=== PATIENT | male | born 1945 | race Caucasian/White ===

== ENCOUNTER 2018-05-30 22:13 | Inpatient (IN) ==
--- NOTE | 2018-05-30 22:22 | Emergency Department Note ---
Disposition Clinical Impression: Atrial fibrillation with rapid ventricular response Difficulty swallowing Qualifiers: Dysphagia type: unspecified Qualified Code(s): R13.10 - Dysphagia, unspecified UTI (urinary tract infection) Qualifiers: Urinary tract infection type: site unspecified Hematuria presence: with hematuria Qualified Code(s): N39.0 - Urinary tract infection, site not specified; R31.9 - Hematuria, unspecified Pneumonia Qualifiers: Pneumonia type: due to unspecified organism Laterality: right Lung location: lower lobe of lung Qualified Code(s): J18.1 - Lobar pneumonia, unspecified organism Sepsis Qualifiers: Sepsis type: sepsis due to unspecified organism Qualified Code(s): A41.9 - Sepsis, unspecified organism Disposition: Admitted As Inpatient Condition: Fair Referrals: NONE,PCP [Primary Care Provider] - Forms: ED Satisfaction Letter Time of Disposition: 23:15 SOB HPI - General Chief Complaint: ED Shortness of Breath/Dyspnea Stated Complaint: Trouble Swallowing Time Seen by Provider: 05/30/18 22:18 Source: patient, family, EMS Mode of arrival: EMS Limitations: physical limitation Nursing Notes Reviewed: Yes Vital Signs Reviewed: Yes - History of Present Illness Most history obtained from the patient's spouse at bedside. The patient has had difficulty chewing and swallowing. He has a history of multiple CVAs with residual left-sided deficits. Over the past 1-2 weeks the spouse notes the patient puts food in his mouth and it "just sits on his tongue" and "then he just spits it out." The patient also has experienced increasing dyspnea over the past several days. No fevers. No chest pain Pt Subjective Complaint: shortness of breath Onset (ago): day(s) Severity: moderate Consistency/Duration: constant Improves with: bronchodilators Worsens with: nothing Associated symptoms: Reports: denies other symptoms Treatment prior to arrival: oxygen, bronchodilator Cough present: No - Related Data Home oxygen amount: none Allergies Allergy/AdvReac Type Severity Reaction Status Date / Time No Known Allergies Allergy Verified 05/30/18 22:19 All systems ED: reviewed and negative except as stated. Constitutional: Reports: as per HPI Eyes: Reports: as per HPI ENT ED: Reports: as per HPI Cardiovascular: Reports: as per HPI Respiratory: Reports: dyspnea Gastrointestinal: Reports: as per HPI Genitourinary: Reports: as per HPI Musculoskeletal: Reports: as per HPI Integumentary: Reports: as per HPI Neurological: Reports: other (Difficulty swallowing. "Leaning to the left") Psychiatric: Reports: as per HPI Endocrine: Reports: as per HPI Hematological/Lymphatic: Reports: as per HPI Allergic/Immunologic: Reports: as per HPI Past Medical History - Past Medical History Source: old records reviewed, obtained from family Medical history: Reports: CVA - Social History Smoking Status: Current some day smoker Alcohol use: Reports: none Drug use: Reports: none Physical Exam - General Limitations: no limitations General appearance: alert - Head Head exam: atraumatic - Eye Eye exam: Present: normal appearance - ENT ENT exam: normal exam - Neck Neck exam: Present: normal inspection, full ROM - Chest Chest inspection: Present: normal inspection, symmetric chest wall rise - Respiratory Respiratory exam: Present: normal lung sounds bilaterally, other (Tachypnea) - Cardiovascular Cardiovascular exam: Present: tachycardia, normal heart sounds - Abdominal Exam Abdominal exam: Present: soft, Non-Tender - Rectal Exam Rectal exam: Present: deferred - Extremities Exam Extremities exam: Present: normal inspection - Neurological Exam Neurological exam: Present: alert, oriented X3, CN II-XII intact, other (Mild left upper and left lower extremity weakness 4+ / 5) - Psychiatric Psychiatric exam: Present: normal affect, normal mood - Skin Skin exam: Present: warm, dry, intact Course Course Narrative: The patient presents for 2 separate problems. The first is that he has had difficulty swallowing over the past 1-2 weeks. This seems neurologic more than mechanical. This may be secondary to his previous CVAs or new ischemic phenom enon. CT head ordered. The patient also has increasing dyspnea. Cardiopulmonary evaluation to be completed Vital Signs Temperature 97.8 F 05/30/18 22:20 Pulse Rate 189 05/30/18 22:20 Respiratory Rate 23 05/30/18 22:20 Blood Pressure 132/102 05/30/18 22:20 O2 Sat by Pulse Oximetry 98 05/30/18 22:20 Temperature 97.8 F 05/30/18 22:20 Pulse Rate 160 05/30/18 23:26 Respiratory Rate 25 05/30/18 23:26 Blood Pressure 104/83 05/30/18 23:26 O2 Sat by Pulse Oximetry 100 05/30/18 23:26 Oxygen Delivery Oxygen Delivery Room Air Shortness of Breath/Dyspnea - MDM Narrative Medical decision making narrative: ECG shows a narrow complex tachycardia most consistent with atrial fibrillation with RVR. Rate control agents initiated - Medical Records Medical records reviewed: Yes I reviewed the patient's medical records. - Lab Data Lab results reviewed: Yes I reviewed the patient's lab results. Result diagrams: 05/30/18 22:50 05/30/18 22:50 Lab Results 05/30/18 05/30/18 05/30/18 Range/Units 22:43 22:50 22:50 WBC 16.1 H (4.3-11.1) K/mcL RBC 4.86 (4.19-5.50) M/mcL Hgb 13.9 (12.9-16.9) g/dL Hct 43.0 (37.5-50.1) % MCV 88.5 (83.0-100.0) fL MCH 28.6 (28.0-33.3) pg MCHC 32.3 (31.6-35.5) g/dL RDW 14.5 (11.5-14.5) % Plt Count 366 (140-400) K/mcL MPV 11.3 (9.4-12.4) fL Immature Gran % 0.7 (0-4) % Seg Neutrophils % 85.0 % Lymphocytes % 6.2 % Monocytes % 7.7 % Eosinophils % 0.2 % Basophils % 0.2 % Neutrophils # 13.7 H (1.6-8.9) K/mcL Lymphocytes # 1.0 (0.6-4.6) K/mcL Monocytes # 1.2 (0.0-1.3) K/mcL Eosinophils # 0.0 (0.0-0.6) K/mcL Basophils # 0.0 (0.0-0.2) K/mcL PT 14.2 H (9.4-12.1) Seconds INR 1.3 APTT (26.0-36.0) Seconds Sodium (136-145) mEq/L Potassium (3.5-5.1) mEq/L Chloride (98-107) mEq/L Carbon Dioxide (23-29) mEq/L BUN (8-23) mg/dL Creatinine (0.70-1.30) mg/dL Est GFR ( Amer) (> 60) Est GFR (Non-Af Amer) (> 60) BUN/Creatinine Ratio (6-26) Glucose (70-105) mg/dL Calculated Osmolality (280-300) Lactic Acid (0.5-2.2) mmol/L Calcium (8.6-10.3) mg/dL Magnesium (1.6-2.6) mg/dL Total Bilirubin (0.3-1.0) mg/dL AST (13-39) Units/L ALT (7-52) Units/L Alkaline Phosphatase (34-104) Units/L Troponin I (< 0.04) ng/mL B-Natriuretic Peptide (Less than 100) pg/mL Serum Total Protein (6.4-8.9) g/dL Albumin (3.5-5.7) g/dL Globulin (2.4-3.5) g/dL Albumin/Globulin Ratio (1.1-2.2) TSH (0.340-5.600) mcIU/mL Urine Color Dark Yellow (Yellow) Urine Clarity Cloudy A (Clear) Urine pH 6.0 (5.0-8.0) pH Units Ur Specific [place] 1.022 (1.010-1.025) Urine Protein 30 H (Neg-Trace) mg/dL Urine Glucose (UA) Normal (Normal) mg/dL Urine Ketones Negative (Negative) mg/dL Urine Blood Small H (Negative) Urine Nitrite Positive A (Negative) Urine Bilirubin Small H (Negative) Urine Urobilinogen >=8.0 H (Normal) mg/dL Ur Leukocyte Esterase Large H (Negative) Urine Microscopic RBC 0-3 (0-3) per hpf Urine Microscopic WBC TNTC H (0-3) per hpf Ur Squamous Epith Cells Few (None-Few) per lpf Urine Bacteria Many H (None-Few) per hpf 05/30/18 05/30/18 05/30/18 Range/Units 22:50 22:50 22:50 WBC (4.3-11.1) K/mcL RBC (4.19-5.50) M/mcL Hgb (12.9-16.9) g/dL Hct (37.5-50.1) % MCV (83.0-100.0) fL MCH (28.0-33.3) pg MCHC (31.6-35.5) g/dL RDW (11.5-14.5) % Plt Count (140-400) K/mcL MPV (9.4-12.4) fL Immature Gran % (0-4) % Seg Neutrophils % % Lymphocytes % % Monocytes % % Eosinophils % % Basophils % % Neutrophils # (1.6-8.9) K/mcL Lymphocytes # (0.6-4.6) K/mcL Monocytes # (0.0-1.3) K/mcL Eosinophils # (0.0-0.6) K/mcL Basophils # (0.0-0.2) K/mcL PT (9.4-12.1) Seconds INR APTT 30.4 (26.0-36.0) Seconds Sodium 138 (136-145) mEq/L Potassium 3.0 L (3.5-5.1) mEq/L Chloride 104 (98-107) mEq/L Carbon Dioxide 24 (23-29) mEq/L BUN 44 H (8-23) mg/dL Creatinine 1.22 (0.70-1.30) mg/dL Est GFR ( Amer) > 60 (> 60) Est GFR (Non-Af Amer) 58 L (> 60) BUN/Creatinine Ratio 36 H (6-26) Glucose 139 H (70-105) mg/dL Calculated Osmolality 299 (280-300) Lactic Acid (0.5-2.2) mmol/L Calcium 9.6 (8.6-10.3) mg/dL Magnesium 2.1 (1.6-2.6) mg/dL Total Bilirubin 0.8 (0.3-1.0) mg/dL AST 36 (13-39) Units/L ALT 24 (7-52) Units/L Alkaline Phosphatase 97 (34-104) Units/L Troponin I 0.05 H* (< 0.04) ng/mL B-Natriuretic Peptide 299 H (Less than 100) pg/mL Serum Total Protein 7.3 (6.4-8.9) g/dL Albumin 3.2 L (3.5-5.7) g/dL Globulin 4.1 H (2.4-3.5) g/dL Albumin/Globulin Ratio 0.8 L (1.1-2.2) TSH (0.340-5.600) mcIU/mL Urine Color (Yellow) Urine Clarity (Clear) Urine pH (5.0-8.0) pH Units Ur Specific [place] (1.010-1.025) Urine Protein (Neg-Trace) mg/dL Urine Glucose (UA) (Normal) mg/dL Urine Ketones (Negative) mg/dL Urine Blood (Negative) Urine Nitrite (Negative) Urine Bilirubin (Negative) Urine Urobilinogen (Normal) mg/dL Ur Leukocyte Esterase (Negative) Urine Microscopic RBC (0-3) per hpf Urine Microscopic WBC (0-3) per hpf Ur Squamous Epith Cells (None-Few) per lpf Urine Bacteria (None-Few) per hpf 05/30/18 05/30/18 Range/Units 22:50 22:50 WBC (4.3-11.1) K/mcL RBC (4.19-5.50) M/mcL Hgb (12.9-16.9) g/dL Hct (37.5-50.1) % MCV (83.0-100.0) fL MCH (28.0-33.3) pg MCHC (31.6-35.5) g/dL RDW (11.5-14.5) % Plt Count (140-400) K/mcL MPV (9.4-12.4) fL Immature Gran % (0-4) % Seg Neutrophils % % Lymphocytes % % Monocytes % % Eosinophils % % Basophils % % Neutrophils # (1.6-8.9) K/mcL Lymphocytes # (0.6-4.6) K/mcL Monocytes # (0.0-1.3) K/mcL Eosinophils # (0.0-0.6) K/mcL Basophils # (0.0-0.2) K/mcL PT (9.4-12.1) Seconds INR APTT (26.0-36.0) Seconds Sodium (136-145) mEq/L Potassium (3.5-5.1) mEq/L Chloride (98-107) mEq/L Carbon Dioxide (23-29) mEq/L BUN (8-23) mg/dL Creatinine (0.70-1.30) mg/dL Est GFR ( Amer) (> 60) Est GFR (Non-Af Amer) (> 60) BUN/Creatinine Ratio (6-26) Glucose (70-105) mg/dL Calculated Osmolality (280-300) Lactic Acid 2.3 H (0.5-2.2) mmol/L Calcium (8.6-10.3) mg/dL Magnesium (1.6-2.6) mg/dL Total Bilirubin (0.3-1.0) mg/dL AST (13-39) Units/L ALT (7-52) Units/L Alkaline Phosphatase (34-104) Units/L Troponin I (< 0.04) ng/mL B-Natriuretic Peptide (Less than 100) pg/mL Serum Total Protein (6.4-8.9) g/dL Albumin (3.5-5.7) g/dL Globulin (2.4-3.5) g/dL Albumin/Globulin Ratio (1.1-2.2) TSH 3.301 (0.340-5.600) mcIU/mL Urine Color (Yellow) Urine Clarity (Clear) Urine pH (5.0-8.0) pH Units Ur Specific [place] (1.010-1.025) Urine Protein (Neg-Trace) mg/dL Urine Glucose (UA) (Normal) mg/dL Urine Ketones (Negative) mg/dL Urine Blood (Negative) Urine Nitrite (Negative) Urine Bilirubin (Negative) Urine Urobilinogen (Normal) mg/dL Ur Leukocyte Esterase (Negative) Urine Microscopic RBC (0-3) per hpf Urine Microscopic WBC (0-3) per hpf Ur Squamous Epith Cells (None-Few) per lpf Urine Bacteria (None-Few) per hpf - Radiology Data Radiology results reviewed: Yes I reviewed the patient's radiology results. - EKG Data EKG attestation: Yes I reviewed and interpreted this EKG. EKG results narrative: Neuro complex tachycardia rate 189 QRS 104 QT/QTC 253/449. Study compared to previous dated 01/30/14 Critical Care Time Critical Care Time: Yes Total Critical Care Time: 45 Attestation: The high probability of a clinically significant, sudden or life threatening deterioration of the [] system(s) required my full and direct attention, intervention and personal management. The aggregate critical care time was [] minutes. This time is in addition to time spent performing reported procedures but includes the following: [] Data Review and interpretation [] Patient assessment and monitoring of vital signs [] Documentation [] Medication orders and management
[2018-05-30 22:58] LABS: Bilirubin,Urine Small (Negative); Blood,Urine Small (Negative); Clarity,Urine Cloudy (Clear); Color,Urine Dark Yellow (Yellow); Glucose,Urine (UA) Normal (Normal); Ketones,Urine Negative (Negative); Leukocyte Esterase,Urine Large (Negative); Nitrite,Urine Positive (Negative); Protein,Urine 30 mg/dL (Neg-Trace); Specific Gravity,Urine 1.022 (1.010-1.025); Urobilinogen,Urine >=8.0 mg/dL (Normal)
[2018-05-30 23:00] LABS: Bacteria,Urine Many per hpf (None-Few); RBC,Urine 0-3 per hpf (0-3); Squamous Epithelial Cell,Urine Few per lpf (None-Few); WBC,Urine TNTC per hpf (0-3)
[2018-05-30 23:08] LABS: Basophils % 0.2 %; Eosinophils % 0.2 %; Hemoglobin 13.9 g/dL (12.9-16.9); Immature Granulocytes % 0.7 % (0-4); Lymphocytes % 6.2 %; Mean Corpuscular HGB Conc 32.3 g/dL (31.6-35.5); Mean Corpuscular Hemoglobin 28.6 pg (28.0-33.3); Mean Corpuscular Volume 88.5 fL (83.0-100.0); Mean Platelet Volume 11.3 fL (9.4-12.4); Monocytes # 1.2 K/mcL (0.0-1.3); Monocytes % 7.7 %; Neutrophils # 13.7 K/mcL (1.6-8.9); Platelet Count 366 K/mcL (140-400); Red Blood Count 4.86 M/mcL (4.19-5.50); Red Cell Distribution Width 14.5 % (11.5-14.5)
[2018-05-30 23:13] LABS: INR 1.3; Prothrombin Time 14.2 Seconds (9.4-12.1)
[2018-05-30] MEDS ORDERED: cefTRIAXone 1,000 MG in Water for inj. (sterile) 20 ML 10 ML IVPB ONE (23:14)
[2018-05-30 23:26] LABS: Alanine Aminotransferase 24 Units/L (7-52); Albumin 3.2 g/dL (3.5-5.7); Albumin/Globulin Ratio 0.8 (1.1-2.2); Alkaline Phosphatase 97 Units/L (34-104); Aspartate Amino Transferase 36 Units/L (13-39); BUN/Creatinine Ratio 36 (6-26); Bilirubin,Total 0.8 mg/dL (0.3-1.0); Blood Urea Nitrogen 44 mg/dL (8-23); Calcium 9.6 mg/dL (8.6-10.3); Carbon Dioxide 24 mEq/L (23-29); Chloride 104 mEq/L (98-107); Globulin 4.1 g/dL (2.4-3.5); Glucose 139 mg/dL (70-105); Magnesium 2.1 mg/dL (1.6-2.6); Osmolality,Calculated 299 (280-300); Sodium 138 mEq/L (136-145); Total Protein 7.3 g/dL (6.4-8.9); eGFR For Non-African Americans 58 (> 60)
[2018-05-30 23:29] LABS: Troponin I 0.05 ng/mL (< 0.04)
[2018-05-30] MEDS ORDERED: Aspirin 325 MG TABLET PO ONE (23:30)
[2018-05-30] MEDS ORDERED: Azithromycin 500 MG in D5% in Water 250 ML IVPB ONE (23:55)
[2018-05-30] MEDS ORDERED: 0.9 % Sodium Chloride 1,000 ML IVC ONE (23:58)
[2018-05-31] MEDS ORDERED: Piperacillin/Tazobactam 3.375 GM in 0.9 % Sodium Chloride Mini Bag 100 ML IVPB ONE (00:07)
[2018-05-31] MEDS ORDERED: Ondansetron 4 MG/2 ML VIAL IVP PRN (01:53)
[2018-05-31] MEDS ORDERED: Naloxone 0.4 MG/ML INJ IVP PRN (01:53)
[2018-05-31] MEDS ORDERED: OXYCODONE Oral CONC 10 MG/0.5 ML ORAL.SYG SL PRN (01:53)
[2018-05-31] MEDS ORDERED: 0.9 % Sodium Chloride 1,000 ML IVC ONE (01:54)
[2018-05-31] MEDS ORDERED: Ipratropium/Albuterol Neb 3 ML IH PRN (01:55)
[2018-05-31] MEDS ORDERED: Potassium Chloride 40 MEQ, Lidocaine 1% 2 ML in D5% in Water 500 ML IVPB ONE (01:58)
--- NOTE | 2018-05-31 01:58 | Internal Med History&Physical ---
<Martin Lopez - Last Filed: 05/31/18 03:20> Date of Encounter: 05/31/18 Time of Encounter: 01:57 Internal Medicine - H&P: HPI Chief complaint: Difficulty swallowing Admitted From: Emergency Dept Plans for Post Hospital Care: Home History of present illness: Mr. Gilliland is a 73 year old male with past medical history of CVA 9, atrial fibrillation, COPD, CAD with [place], hypertension, borderline diabetes, dementia who presented to the emergency department with his with complaint of difficulty swallowing. Patient is notably not a good historian and most of history is obtained from his and chart review. states that she has noticed him being unable to swallow for the past 3 days. He does have residual deficits from his strokes including extremity weakness however she states that normally he has no issues eating or drinking. She has not noticed any coughing or gagging while eating. She states that when he puts food in his mouth, he will chew but is unable to initiate a swallow mechanism. She states that previously he has been able to eat and drink very well and usually has a very good appetite. He has not been complaining of other symptoms including fevers, chills, chest pains, difficulty breathing, nausea, vomiting, urinary symptoms. He is incontinent at baseline. He also has had some more loose stools recently. He does state he has a cough but is unable to describe his sputum. He does relate to me that he is not currently any pain. In the emergency room, vital signs were significant for heart rate of 189, respiratory rate 23, he is saturating 98% oxygen on room air. Leukocytosis was noted at 16.1, potassium low at 3.0 and sodium borderline low at 130. BUNs/creatinine of 44/1.22 and lactic acid 2.3. Troponin was also elevated at 0.05 and BNP was 299. Urinalysis was also obtained which shows large leukocyte esterase, too numerous to count white blood cells and few epithelial cells. EKG was obtained and showed atrial fibrillation with rapid ventricular response with a rate in the 180s. Also noted was some ST depressions in lead II. Chest x-ray was obtained and showed right lower lobe consolidation and CT of the head showed extensive chronic changes encephalomalacia. Past medical history as above. states that he is not on anticoagulation for atrial fibrillation. Past surgical history: Cholecystectomy Social history: Current smoker, very rare alcohol use. Denies drug use Past Med Surg Social Fam HX - Past Medical History Medical history: CVA Psychiatric history: no psych history - Social History Smoking Status: Current some day smoker Smokeless Tobacco Status: No Alcohol use: none Drug use: none Internal Medicine - H&P: Meds Allergy/AdvReac Type Severity Reaction Status Date / Time No Known Allergies Allergy Verified 05/30/18 22:19 ROS unobtainable: due to mental status All Systems PM: A 10-system review of systems was performed and is negative for pertinent findings except as documented above in the HPI. - Constitutional Vitals: Temp Pulse Resp BP Pulse Ox 97.8 F 117 22 104/86 100 05/30/18 22:20 05/31/18 01:34 05/31/18 01:34 05/31/18 01:34 05/31/18 01:34 Exam: Gen.: Vitals noted. No acute distress. AAOx1, resting comfortably in bed. HEENT: PERRL/EOMI, oropharynx clear, Normocephalic, atraumatic, dry mucous membranes, tongue is orange in color Cardiac: Irregularly irregular, tachycardic, no murmur, +S1/S2, No BLE edema Pulmonary: Diffuse expiratory wheezes, crackles on right base. equal chest expansion, unlabored breathing Abdomen: soft, nontender, BS noted, no guarding, no palpable HSM Skin: warm and dry, no visible lesions. MSK: ROM unable to assess secondary to mental status. Patient unable to compreh end instructions., no joint swelling noted, gait no assessed while in bed. Non tender calf or clubbing Neuro: A&Ox1, unable to fully assess neurological exam is patient is unable to follow commands. He does try to stick out his tongue however tip of tongue does not protrude past mouth opening. Pupils equal and reactive to light. Psych: Appropriate mood and behavior, AOx1 Internal Med - H&P Results - Labs CBC & Chem 7: 05/30/18 22:50 05/30/18 22:50 Labs: Short CBC 05/30/18 Range/Units 22:50 WBC 16.1 H (4.3-11.1) K/mcL Hgb 13.9 (12.9-16.9) g/dL Hct 43.0 (37.5-50.1) % Plt Count 366 (140-400) K/mcL Neutrophils # 13.7 H (1.6-8.9) K/mcL BMP 05/30/18 22:50 Sodium 138 Potassium 3.0 L Chloride 104 Carbon Dioxide 24 BUN 44 H Creatinine 1.22 Glucose 139 H Calcium 9.6 Cardiac Enzymes 05/30/18 Range/Units 22:50 Troponin I 0.05 H* (< 0.04) ng/mL Liver Function 05/30/18 Range/Units 22:50 Total Bilirubin 0.8 (0.3-1.0) mg/dL AST 36 (13-39) Units/L ALT 24 (7-52) Units/L Alkaline Phosphatase 97 (34-104) Units/L Albumin 3.2 L (3.5-5.7) g/dL Urine 05/30/18 Range/Units 22:43 Urine Color Dark Yellow (Yellow) Urine Clarity Cloudy A (Clear) Urine pH 6.0 (5.0-8.0) pH Units Ur Specific [place] 1.022 (1.010-1.025) Urine Protein 30 H (Neg-Trace) mg/dL Urine Glucose (UA) Normal (Normal) mg/dL - Impressions ITS Impressions Chest X-Ray 05/30/18 22:19 IMPRESSION: Right lower lobe airspace consolidation suggesting pneumonia. Recommend clinical correlation and follow-up to resolution. D/ / Gary Burleson MD / Gary Burleson MD Interpreting Provider: Gary Burleson MD Head CT 05/30/18 22:19 IMPRESSION: Extensive chronic white matter microangiopathic ischemic changes and age-related cerebral atrophy. Evidence of encephalomalacia from remote infarcts in bilateral occipital lobes and left frontal lobe. No evidence of acute intracranial hemorrhage. Right maxillary sinusitis. D/ / Gary Burleson MD / Gary Burleson MD Interpreting Provider: Gary Burleson MD - Assessment and plan (1) Severe sepsis Current Visit: Yes Status: Acute Assessment and plan: - Meets 3/4 sirs criteria with tachycardia, tachypnea, leukocytosis - Lactic Acidosis 2.3, repeat pending - Likely source at this time is aspiration pneumonia with possible simultaneous UTI - Causative organism, unclear - Patient's states that he has been difficulty initiating swallow reflex. History of multiple CVA - No previous cultures at this facility - Blood cultures obtained emergency department - Urinalysis shows large leukocyte esterase, too numerous to count white blood cells, few epithelial cells. Culture sent - Chest x-ray in the emergency department shows right lower lobe consolidation suggestive for possible pneumonia. Consistent with aspiration Plan - We will continue Zosyn to cover both UTI and aspiration - Speech therapy has been consulted - Follow up blood cultures, urine cultures - Trend lactic acid - Received 1 L bolus emergency room, will order additional 1 L for 30 mL/kg bolus, and then maintenance after that (2) Atrial fibrillation with rapid ventricular response Current Visit: Yes Status: Acute Assessment and plan: - Known history of AFib - Not on home AC per , suspect frequent falls - Rate uncontrolled on presentation in 180s, likely secondary to infection, dehydration - No home meds in system yet - Started on cardizem gtt in ED - [id number]= 5 (age, HTN, stroke, PAD) - HASBLED= 3 (stroke, age, falls)- unclear home meds Plan - Continue cardizem gtt - Will not start AC as patient will likely be a poor candidate as outpatient - Subcutaneous heparin (3) History of stroke Current Visit: Yes Status: Chronic (4) COPD (chronic obstructive pulmonary disease) Current Visit: Yes Status: Chronic Assessment and plan: Does not appear to be in acute exacerbation - Some wheezing on auscultation - Will schedule duonebs Qualifiers: COPD type: unspecified COPD Qualified Code(s): J44.9 - Chronic obstructive pulmonary disease, unspecified (5) CAD (coronary artery disease) Current Visit: Yes Status: Chronic Assessment and plan: - No complaints of chest pain - EKG shows AFib RVR. Non specific lead II changes. Will repeat EKG but suspect due to demand - Will continue home meds once reconciled and passes swallow eval - trend troponin Qualifiers: Coronary Disease-Associated Artery/Lesion type: [place] artery [place] vs. transplanted heart: [place] heart Associated angina: without angina Qualified Code(s): I25.10 - Atherosclerotic heart disease of [place] coronary artery without angina pectoris (6) Difficulty swallowing Current Visit: Yes Status: Acute Assessment and plan: - Chief complaint of dysphagia and initiating swallow reflex per - patient has been previously eating and drinking without difficulty. - Very significant history of strokes - Speech therapy has been consulted - Consider formal swallow study - NPO - CT head negative in ED for acute event. - MRI ordered for AM to rule out further ischemic event Qualifiers: Dysphagia type: unspecified Qualified Code(s): R13.10 - Dysphagia, unspecified (7) Pneumonia Current Visit: Yes Status: Suspected Assessment and plan: - as above - Suspect aspiration event given hx of stroke and dysphagia Qualifiers: Pneumonia type: aspiration pneumonia Aspiration pneumonia type: unspecified Laterality: right Lung location: lower lobe of lung Qualified Code(s): J69.0 - Pneumonitis due to inhalation of food and vomit (8) UTI (urinary tract infection) Current Visit: Yes Status: Acute Assessment and plan: as above for sepsis Qualifiers: Urinary tract infection type: acute cystitis Hematuria presence: with hematuria Qualified Code(s): N30.01 - Acute cystitis with hematuria (9) Elevated serum creatinine Current Visit: Yes Status: Acute Assessment and plan: - Cr on Admission of 1.22, calculated GFR of 58 - Unclear baseline - Suspect this may be mildly elevated from baseline due to sepsis, pre-renal causes - Will give fluids as above - Continue to trend - Avoid nephrotoxins, renally dose (10) Elevated troponin Current Visit: Yes Status: Acute Assessment and plan: Troponin of 0.05 Likely elevated due to demand ischemia in the setting of AFib RVR, sepsis Will trend, expect a mild rise (11) Hypokalemia Current Visit: Yes Status: Acute Assessment and plan: K of 3.0 Will replenish Check Magnesium Repeat labs (12) Tobacco abuse Current Visit: Yes Status: Acute Assessment and plan: current partial PPD smoker encouraged cessation (13) DVT prophylaxis Current Visit: Yes Status: Acute Assessment and plan: - Subcutaneous heparin. Not on home AC per . - Time Spent With Patient Total time spent is greater than 50% in coordination of care (as documented) at patient's floor/unit and/or counseling patient: <CelsavadimWilfrido Vega - Last Filed: 05/31/18 08:02> Date of Encounter: 05/31/18 Internal Medicine - H&P: HPI History of present illness: Mr. Gilliland is a 73 year old male All Systems PM: A 10-system review of systems was performed and is negative for pertinent findings except as documented above in the HPI. - Constitutional Vitals: Temp Pulse Resp BP Pulse Ox 98.4 F 111 17 103/85 96 05/31/18 07:29 05/31/18 07:29 05/31/18 07:29 05/31/18 07:29 05/31/18 07:29 Internal Med - H&P Results - Labs CBC & Chem 7: 05/31/18 05:23 05/31/18 05:23 Labs: Short CBC 05/30/18 05/31/18 Range/Units 22:50 05:23 WBC 16.1 H 12.0 H (4.3-11.1) K/mcL Hgb 13.9 11.4 L D (12.9-16.9) g/dL Hct 43.0 34.5 L (37.5-50.1) % Plt Count 366 309 (140-400) K/mcL Neutrophils # 13.7 H 9.2 H (1.6-8.9) K/mcL BMP 05/30/18 05/31/18 22:50 05:23 Sodium 138 138 Potassium 3.0 L 3.1 L Chloride 104 107 Carbon Dioxide 24 23 BUN 44 H 40 H Creatinine 1.22 1.08 Glucose 139 H 127 H Calcium 9.6 8.8 Cardiac Enzymes 05/30/18 05/31/18 Range/Units 22:50 05:23 Troponin I 0.05 H* 0.06 H* (< 0.04) ng/mL Liver Function 05/30/18 Range/Units 22:50 Total Bilirubin 0.8 (0.3-1.0) mg/dL AST 36 (13-39) Units/L ALT 24 (7-52) Units/L Alkaline Phosphatase 97 (34-104) Units/L Albumin 3.2 L (3.5-5.7) g/dL Urine 05/30/18 Range/Units 22:43 Urine Color Dark Yellow (Yellow) Urine Clarity Cloudy A (Clear) Urine pH 6.0 (5.0-8.0) pH Units Ur Specific [place] 1.022 (1.010-1.025) Urine Protein 30 H (Neg-Trace) mg/dL Urine Glucose (UA) Normal (Normal) mg/dL - Impressions ITS Impressions Chest X-Ray 05/30/18 22:19 IMPRESSION: Right lower lobe airspace consolidation suggesting pneumonia. Recommend clinical correlation and follow-up to resolution. D/ / Gary Burleson MD / Gary Burleson MD Interpreting Provider: Gary Burleson MD Head CT 05/30/18 22:19 IMPRESSION: Extensive chronic white matter microangiopathic ischemic changes and age-related cerebral atrophy. Evidence of encephalomalacia from remote infarcts in the bilateral occipital lobes and left frontal lobe. No evidence of acute intracranial hemorrhage. Right maxillary sinusitis. D/ / 05/31/2018 07:10:16 Gary Burleson MD / dante Interpreting Provider: Gary Burleson MD - Time Spent With Patient Total time spent is greater than 50% in coordination of care (as documented) at patient's floor/unit and/or counseling patient: - Attending Attestation I performed a history and physical examination of the patient and discussed his management with the resident. I reviewed the resident's note and agree with the documented findings and plan of care.
[2018-05-31] MEDS: 0.9 % Sodium Chloride 1,000 ML IVC SCH ×2 (04:05→12:12)
[2018-05-31 05:35] LABS: Basophils % 0.2 %; Eosinophils # 0.1 K/mcL (0.0-0.6); Eosinophils % 0.7 %; Hematocrit 34.5 % (37.5-50.1); Hemoglobin 11.4 g/dL (12.9-16.9); Immature Granulocytes % 0.9 % (0-4); Lymphocytes # 1.6 K/mcL (0.6-4.6); Lymphocytes % 13.1 %; Mean Corpuscular Hemoglobin 29.2 pg (28.0-33.3); Mean Corpuscular Volume 88.2 fL (83.0-100.0); Mean Platelet Volume 11.1 fL (9.4-12.4); Monocytes % 8.7 %; Neutrophils # 9.2 K/mcL (1.6-8.9); Platelet Count 309 K/mcL (140-400); Red Blood Count 3.91 M/mcL (4.19-5.50); Red Cell Distribution Width 14.5 % (11.5-14.5); Segmented Neutrophils % 76.4 %
[2018-05-31 05:55] LABS: BUN/Creatinine Ratio 37 (6-26); Blood Urea Nitrogen 40 mg/dL (8-23); Calcium 8.8 mg/dL (8.6-10.3); Carbon Dioxide 23 mEq/L (23-29); Chloride 107 mEq/L (98-107); Chol/HDL Ratio 6.7 (0-4.9); Cholesterol 87 mg/dL (< 200); Glucose 127 mg/dL (70-105); HDL Cholesterol 13 mg/dL (40-59); LDL Cholesterol,Calculated 50 mg/dL (0-99); Magnesium 2.1 mg/dL (1.6-2.6); Osmolality,Calculated 297 (280-300); Potassium 3.1 mEq/L (3.5-5.1); Sodium 138 mEq/L (136-145); Triglycerides 118 mg/dL (< 150); eGFR For Non-African Americans > 60 (> 60)
--- NOTE | 2018-05-31 06:39 | Sepsis Event Note ---
Sepsis Reassessment Note - Evaluation Sepsis Screen: Sepsis Risk Current Stage of Sepsis: sepsis Possible Source of Sepsis: pulmonary - Focused Exam Date of Encounter: 05/31/18 Time of Encounter: 06:37 Vital Signs: Vital Signs Temp Pulse Resp BP Pulse Ox 05/31/18 03:50 19 103/60 05/31/18 03:45 99 05/31/18 03:24 97.8 F 93 18 122/87 98 05/31/18 01:34 117 22 104/86 100 05/31/18 00:31 154 21 107/73 100 05/31/18 00:04 175 24 115/87 95 05/30/18 23:26 160 25 104/83 100 05/30/18 22:44 132 24 106/72 95 05/30/18 22:20 97.8 F 189 23 132/102 98 Respiratory Exam: Present: wheezes Cardiovascular Exam: Present: irregulary irregular, S1, S2 Capillary Refill: < 2 seconds Peripheral Pulse Strength: 2+ slightly diminished Peripheral Pulse Location: Radial Skin Exam: normal turgor
[2018-05-31] MEDS: *HR* Heparin 5,000 UNIT/ML VIAL SQ SCH ×2 (06:43→19:02)
[2018-05-31] MEDS: Piperacillin/Tazobactam 3.375 GM in 0.9 % Sodium Chloride Mini Bag 100 ML IVPB SCH ×2 (08:39→17:31)
[2018-05-31] MEDS ORDERED: *HR* LORazepam 2 MG/ML VIAL IVP PRN (09:27)
[2018-05-31] MEDS: Diltiazem CD (24hr) 120 MG CAPSULE PO SCH (09:43)
--- NOTE | 2018-05-31 09:48 | Event Note ---
Date of Encounter: 05/31/18 Time of Encounter: 09:45 73 year old male with past medical history of CVA 9, atrial fibrillation, COPD, CAD with [place], hypertension, borderline diabetes, dementia who presented to the emergency department with his with complaint of difficulty swallowing. Patient is notably not a good historian and most of history is obtained from his and chart review. states that she has noticed him being unable to swallow for the past 3 days. Plan Sepsis likely 2/2 to UTI and aspiration pneumonia. Continue zosyn. Follow blood and urine cultures Dysphagia r/o stroke. Obtain MRI. Speech swalow eval. Barium esophagram if necessary Afib with RVR. Wean off cardizem drip and transition to po cardizem
[2018-05-31] MEDS: Potassium Chloride Elixir 20 MEQ/15 ML UDC PO SCH ×3 (12:39→14:36)
[2018-05-31] MEDS ORDERED: Haloperidol Lactate 5 MG/ML VIAL IM PRN (12:55)
[2018-05-31] MEDS ORDERED: Potassium Phosphate 44 MEQ in 0.9 % Sodium Chloride 250 ML IVPB ONE (15:18)
[2018-05-31] MEDS ORDERED: D5% in Water 500 ML IVC SCH ×2 (17:30→18:45)
[2018-05-31] MEDS ORDERED: *HR* Dextrose 50 % in Water (Syg) 50 ML SYRINGE IVP PRN (20:29)
[2018-05-31] MEDS ORDERED: Dextrose Gel 15 GM/37.5 ML TUBE PO PRN ×2 (20:29)
[2018-05-31] MEDS ORDERED: D5% in Water 1,000 ML IVC PRN (20:29)
[2018-06-01] MEDS: D5% in Water 1,000 ML IVC SCH ×2 (00:22→11:28)
[2018-06-01] MEDS: Piperacillin/Tazobactam 3.375 GM in 0.9 % Sodium Chloride Mini Bag 100 ML IVPB SCH ×3 (00:51→18:13)
[2018-06-01] MEDS: Levalbuterol Neb 1.25 MG/3 ML IH SCH ×5 (03:00→21:50)
[2018-06-01] MEDS: *HR* Heparin 5,000 UNIT/ML VIAL SQ SCH ×2 (05:20→18:14)
[2018-06-01] MEDS: Diltiazem CD (24hr) 120 MG CAPSULE PO SCH (08:23)
--- NOTE | 2018-06-01 09:49 | Internal Med Progress Note ---
Hospitalist Progress Note - Encounter Date of Encounter: 06/01/18 Time of Encounter: 09:45 - Subjective Interval History: 73 year old male with past medical history of CVA 9, atrial fibrillation, COPD, CAD with [place], hypertension, borderline diabetes, dementia who presented to the emergency department with his with complaint of difficulty swallowing. Patient is notably not a good historian and most of history is obtained from his and chart review. states that she has noticed him being unable to swallow for the past 3 days. - Exam Vitals: Temp Pulse Resp BP Pulse Ox 98.8 F 96 18 153/87 91 06/01/18 08:25 06/01/18 08:25 06/01/18 08:25 06/01/18 08:25 06/01/18 08:54 Exam: Gen.: Vitals noted. No acute distress. AAOx1, resting comfortably in bed. HEENT: PERRL/EOMI, oropharynx clear, Normocephalic, atraumatic, dry mucous membranes, tongue is orange in color Cardiac: Irregularly irregular, tachycardic, no murmur, +S1/S2, No BLE edema Pulmonary: Diffuse expiratory wheezes, crackles on right base. equal chest expansion, unlabored breathing Abdomen: soft, nontender, BS noted, no guarding, no palpable HSM Skin: warm and dry, no visible lesions. MSK: ROM unable to assess secondary to mental status. Patient unable to comprehend instructions., no joint swelling noted, gait no assessed while in bed. Non tender calf or clubbing Neuro: A&Ox1, unable to fully assess neurological exam is patient is unable to follow commands. He does try to stick out his tongue however tip of tongue does not protrude past mouth opening. Pupils equal and reactive to light. Psych: Appropriate mood and behavior, AOx1 - Assessment and Plan (1) Sepsis Current Visit: Yes Status: Acute Assessment and Plan: Sepsis likely 2/2 to UTI and aspiration pneumonia/ bacterial pneumonia. Continue zosyn. Follow blood and urine cultures WBC trending down (2) Pneumonia Current Visit: Yes Status: Acute Assessment and Plan: Continue zosyn. Follow blood and urine cultures (3) Atrial fibrillation with rapid ventricular response Current Visit: Yes Status: Acute Assessment and Plan: Weaned off cardizem drip and transitioned to po cardizem. Not a candidate for anticoagulation due to recurrent falls (4) Dysphagia Current Visit: Yes Status: Acute Assessment and Plan: MRI negative for speech. Will obtain speech swallow evaluation with modified barium swallow. Continue D5 for nutrition (5) Hypokalemia Current Visit: Yes Status: Acute Assessment and Plan: Replaced (6) DVT prophylaxis Current Visit: Yes Status: Acute Assessment and Plan: Heparin sc - Time Spent with Patient Total time spent is greater than 50% in coordination of care (as documented) at patient's floor/unit and/or counseling patient: Internal Medicine: Result - Labs CBC & Chem 7: 06/01/18 10:52 06/01/18 10:52 Labs: Cardiac Enzymes 05/31/18 Range/Units 10:51 Troponin I 0.07 H* (< 0.04) ng/mL - ABG Interpretation ABG results: PT/INR, D-dimer PT 14.2 Seconds (9.4-12.1) H 05/30/18 22:50 - Impressions Impressions Head CT 05/30/18 22:19 IMPRESSION: Extensive chronic white matter microangiopathic ischemic changes and age-related cerebral atrophy. Evidence of encephalomalacia from remote infarcts in the bilateral occipital lobes and left frontal lobe. No evidence of acute intracranial hemorrhage. Right maxillary sinusitis. D/ / 05/31/2018 07:10:16 Gary Burleson MD / bcarter Interpreting Provider: Gary Burleson MD Brain MRI 05/31/18 01:55 IMPRESSION: No acute intracranial abnormality. Severe chronic microvascular ischemic changes. Numerous chronic infarcts. Severe generalized brain atrophy. D/ / 05/31/2018 12:35:22 Jair Kirkland MD / claudette Interpreting Provider: Jair Kirkland MD Consult Discharge Plan - Plan Referrals: NONE,PCP [Primary Care Provider] - (1) Sepsis Qualifiers: Sepsis type: sepsis due to unspecified organism Qualified Code(s): A41.9 - Sepsis, unspecified organism
[2018-06-01 11:27] LABS: Basophils # 0.1 K/mcL (0.0-0.2); Basophils % 0.6 %; Eosinophils # 0.2 K/mcL (0.0-0.6); Eosinophils % 2.8 %; Hemoglobin 11.3 g/dL (12.9-16.9); Immature Granulocytes % 2.7 % (0-4); Lymphocytes # 1.4 K/mcL (0.6-4.6); Lymphocytes % 15.9 %; Mean Corpuscular HGB Conc 32.3 g/dL (31.6-35.5); Mean Corpuscular Hemoglobin 28.3 pg (28.0-33.3); Mean Corpuscular Volume 87.5 fL (83.0-100.0); Monocytes # 0.8 K/mcL (0.0-1.3); Monocytes % 9.1 %; Neutrophils # 5.9 K/mcL (1.6-8.9); Platelet Count 351 K/mcL (140-400); Red Cell Distribution Width 14.4 % (11.5-14.5); Segmented Neutrophils % 68.9 %
[2018-06-01 11:49] LABS: BUN/Creatinine Ratio 24 (6-26); Blood Urea Nitrogen 22 mg/dL (8-23); Calcium 8.5 mg/dL (8.6-10.3); Carbon Dioxide 23 mEq/L (23-29); Chloride 108 mEq/L (98-107); Glucose 121 mg/dL (70-105); Osmolality,Calculated 295 (280-300); Sodium 140 mEq/L (136-145); eGFR For Non-African Americans > 60 (> 60)
[2018-06-01] MEDS ORDERED: Potassium Chloride 20 MEQ, Lidocaine 1% 2 ML in D5% in Water 250 ML IVPB ONE (17:06)
[2018-06-01] MEDS ORDERED: Haloperidol Lactate 5 MG/ML VIAL IVP ONE (22:34)
[2018-06-02] MEDS: Piperacillin/Tazobactam 3.375 GM in 0.9 % Sodium Chloride Mini Bag 100 ML IVPB SCH ×4 (00:16→23:53)
[2018-06-02] MEDS: Levalbuterol Neb 1.25 MG/3 ML IH SCH ×2 (04:37→10:38)
[2018-06-02] MEDS: *HR* Heparin 5,000 UNIT/ML VIAL SQ SCH ×2 (05:01→18:27)
[2018-06-02] MEDS: D5% in Water 1,000 ML IVC SCH (05:01)
[2018-06-02] MEDS: Diltiazem CD (24hr) 120 MG CAPSULE PO SCH (10:26)
[2018-06-02 10:58] LABS: BUN/Creatinine Ratio 14 (6-26); Blood Urea Nitrogen 12 mg/dL (8-23); Calcium 8.5 mg/dL (8.6-10.3); Carbon Dioxide 23 mEq/L (23-29); Chloride 106 mEq/L (98-107); Glucose 107 mg/dL (70-105); Osmolality,Calculated 284 (280-300); Potassium 3.3 mEq/L (3.5-5.1); Sodium 137 mEq/L (136-145); eGFR For Non-African Americans > 60 (> 60)
--- NOTE | 2018-06-02 11:50 | Internal Med Progress Note ---
Hospitalist Progress Note - Encounter Date of Encounter: 06/02/18 Time of Encounter: 11:45 - Subjective Interval History: 73 year old male with past medical history of CVA 9, atrial fibrillation, COPD, CAD with [place], hypertension, borderline diabetes, dementia who presented to the emergency department with his with complaint of difficulty swallowing. Patient is notably not a good historian and most of history is obtained from his and chart review. states that she has noticed him being unable to swallow for the past 3 days. - Exam Vitals: Temp Pulse Resp BP Pulse Ox 97.5 F L 86 16 145/85 94 06/02/18 11:25 06/02/18 11:25 06/02/18 11:25 06/02/18 11:25 06/02/18 11:25 Exam: Gen.: Vitals noted. No acute distress. AAOx1, resting comfortably in bed. HEENT: PERRL/EOMI, oropharynx clear, Normocephalic, atraumatic, dry mucous membranes, tongue is orange in color Cardiac: Irregularly irregular, tachycardic, no murmur, +S1/S2, No BLE edema Pulmonary: Diffuse expiratory wheezes, crackles on right base. equal chest expansion, unlabored breathing Abdomen: soft, nontender, BS noted, no guarding, no palpable HSM Skin: warm and dry, no visible lesions. MSK: ROM unable to assess secondary to mental status. Patient unable to comprehend instructions., no joint swelling noted, gait no assessed while in bed. Non tender calf or clubbing Neuro: A&Ox1, unable to fully assess neurological exam is patient is unable to follow commands. He does try to stick out his tongue however tip of tongue does not protrude past mouth opening. Pupils equal and reactive to light. Psych: Appropriate mood and behavior, AOx1 - Assessment and Plan (1) Sepsis Current Visit: Yes Status: Acute Assessment and Plan: Sepsis likely 2/2 to UTI and aspiration pneumonia/ bacterial pneumonia. Continue zosyn. Follow blood and urine cultures WBC trending down (2) Pneumonia Current Visit: Yes Status: Acute Assessment and Plan: Continue zosyn. Follow blood and urine cultures (3) Atrial fibrillation with rapid ventricular response Current Visit: Yes Status: Acute Assessment and Plan: Weaned off cardizem drip and transitioned to po cardizem. Not a candidate for anticoagulation due to recurrent falls (4) Dysphagia Current Visit: Yes Status: Acute Assessment and Plan: MRI negative for stroke. Will obtain speech swallow evaluation with modified barium swallow. Seen by speech and barium swallow showed aspiration. Will start on pureed diet per speech recs GI evaluation for possible endoscopy (5) Hypokalemia Current Visit: Yes Status: Acute Assessment and Plan: Replaced (6) DVT prophylaxis Current Visit: Yes Status: Acute Assessment and Plan: Heparin sc - Time Spent with Patient Total time spent is greater than 50% in coordination of care (as documented) at patient's floor/unit and/or counseling patient: Internal Medicine: Result - Labs CBC & Chem 7: 06/01/18 10:52 06/02/18 10:18 Labs: BMP 06/01/18 06/02/18 10:52 10:18 Sodium 140 137 Potassium 3.0 L 3.3 L Chloride 108 H 106 Carbon Dioxide 23 23 BUN 22 12 Creatinine 0.90 0.87 Glucose 121 H 107 H Calcium 8.5 L 8.5 L - ABG Interpretation ABG results: PT/INR, D-dimer PT 14.2 Seconds (9.4-12.1) H 05/30/18 22:50 - Impressions Impressions Videofluoroscopic Swallow 06/02/18 09:18 IMPRESSION: Swallowing mechanism grossly within normal limits. However, there is aspiration and penetration noted with the thin liquids. Please see separate speech pathology report for full discussion of findings and recommendations. D/ / Ugo Cook MD / Ugo Cook MD Interpreting Provider: Ugo Cook MD Consult Discharge Plan - Plan Referrals: NONE,PCP [Primary Care Provider] - (1) Sepsis Qualifiers: Sepsis type: sepsis due to unspecified organism Qualified Code(s): A41.9 - Sepsis, unspecified organism (4) Dysphagia Qualifiers: Dysphagia type: oropharyngeal phase Qualified Code(s): R13.12 - Dysphagia, oropharyngeal phase
--- NOTE | 2018-06-02 12:51 | Gastroenterology Consult Note ---
Date of Encounter: 06/02/18 - Time Spent With Patient Total time spent is greater than 50% in coordination of care (as documented) at patient's floor/unit and/or counseling patient: GI History of Present Illness - Data of Consult Requesting Physician: Wilfrido Quintero MD - Consult Narrative History of present illness: Mr. Gilliland is a 73 year old male Past Med Surg Social Fam HX - Past Medical History Medical history: asthma, atrial fibrillation, COPD, CVA, hypertension, myocardial infarction, other Additional medical history: PVD Psychiatric history: no psych history - Past Surgical History Surgical History: cholecystectomy Additional surgical history: Cyst taken off of tailbone - Social History Smoking Status: Current some day smoker Packs per day: less than 1 Smokeless Tobacco Status: No Alcohol use: none Drug use: none - Constitutional Vitals: Temp Pulse Resp BP Pulse Ox 97.5 F L 86 16 145/85 94 06/02/18 11:25 06/02/18 11:25 06/02/18 11:25 06/02/18 11:25 06/02/18 11:25 Results - Labs CBC & Chem 7: 06/01/18 10:52 06/02/18 10:18 Labs: Last Result Calcium 8.5 mg/dL (8.6-10.3) L 06/02/18 10:18 Troponin I 0.07 ng/mL (< 0.04) H* 05/31/18 10:51 Triglycerides 118 mg/dL (< 150) 05/31/18 05:23 Entire Visit Hgb 11.3 g/dL (12.9-16.9) L 06/01/18 10:52 Hct 35.0 % (37.5-50.1) L 06/01/18 10:52 PT 14.2 Seconds (9.4-12.1) H 05/30/18 22:50 Total Bilirubin 0.8 mg/dL (0.3-1.0) 05/30/18 22:50 AST 36 Units/L (13-39) 05/30/18 22:50 ALT 24 Units/L (7-52) 05/30/18 22:50 - ABG ABG results: PT/INR, D-dimer PT 14.2 Seconds (9.4-12.1) H 01/04/19 22:50 - Impressions Impressions Videofluoroscopic Swallow 06/02/18 09:18 IMPRESSION: Swallowing mechanism grossly within normal limits. However, there is aspiration and penetration noted with the thin liquids. Please see separate speech pathology report for full discussion of findings and recommendations. D/ / Ugo Cook MD / Ugo Cook MD Interpreting Provider: Ugo Cook MD Consult Discharge Plan - Plan Referrals: NONE,PCP [Primary Care Provider] -
--- NOTE | 2018-06-02 13:04 | Gastroenterology Consult Note ---
<Yumi Lee - Last Filed: 06/02/18 12:57> Date of Encounter: 06/02/18 Time of Encounter: 12:35 - Assessment and plan (1) Difficulty swallowing Current Visit: Yes Status: Acute Assessment and plan: Barium swallow showed aspiration and grossly normal swallowing mechanism. He has been npo for the past 6 days. Will proceed with EGD today with possible dilation. Risks and benefits discussed with the and daughter, they verbalize understanding and are in agreement. If aspiration persists he may need PEG tube. Qualifiers: Dysphagia type: unspecified Qualified Code(s): R13.10 - Dysphagia, unspecified (2) Sepsis Current Visit: Yes Status: Acute Assessment and plan: labs improved, vital signs are stable Qualifiers: Sepsis type: sepsis due to unspecified organism Qualified Code(s): A41.9 - Sepsis, unspecified organism - Time Spent With Patient Total time spent is greater than 50% in coordination of care (as documented) at patient's floor/unit and/or counseling patient: GI History of Present Illness - Data of Consult Patient: new to practice Consult date: 06/02/18 Requesting Physician: Wilfrido Quintero MD - Consult Narrative Reason for consult: dysphagia History of present illness: Mr. Gilliland is a 73 year old male with past medical history of CVA 9, atrial fibrillation, COPD, CAD with DC, hypertension, borderline diabetes, dementia who presented to the emergency department with his with complaint of difficulty swallowing. Pt is a very poor historian. Per his and daughter he was eating normally until 6 days ago then they noticed he was chewing but was only holding the food in his mount and not swallowing. He does have residual deficits from his strokes including extremity weakness however she states that normally he has no issues eating or drinking. She has not noticed any coughing or gagging while eating. He has not been complaining of other symptoms including fevers, chills, chest pains, difficulty breathing, nausea, vomiting, urinary symptoms. He is incontinent at baseline. He also has had some more loose stools recently, but none since Saturday. He does state he has a cough but is unable to describe his sputum. He denies any pain or odynophagia. In the emergency room, vital signs were significant for heart rate of 189, respiratory rate 23, he is saturating 98% oxygen on room air. Leukocytosis was noted at 16.1, potassium low at 3.0 and sodium borderline low at 130. BUNs/creatinine of 44/1.22 and lactic acid 2.3. Troponin was also elevated at 0.05 and BNP was 299. Urinalysis was also obtained which shows large leukocyte esterase, too numerous to count white blood cells and few epithelial cells. EKG was obtained and showed atrial fibrillation with rapid ventricular response with a rate in the 180s. Also noted was some ST depressions in lead II. Chest x-ray was obtained and showed right lower lobe consolidation and CT of the head showed extensive chronic changes encephalomalacia. Barium swallow showed an grossly normal swallowing mechanisms. However there was evidence of aspiration. EGD/colon: years ago per pts anticoagulants: heparin 0500 nsaids: asa 05/31/18 0100 Past Med Surg Social Fam HX - Past Medical History Medical history: asthma, atrial fibrillation, COPD, CVA, hypertension, myocardial infarction, other Additional medical history: PVD Psychiatric history: no psych history - Past Surgical History Surgical History: cholecystectomy Additional surgical history: Cyst taken off of tailbone - Social History Smoking Status: Current some day smoker Packs per day: less than 1 Smokeless Tobacco Status: No Alcohol use: none Drug use: none Review of Systems: GI: as per YOSELIN pitt historian GENERAL: denies fever or chills EYES: denies yellow discoloration ENT: denies pain with swallowing or difficulty swallowing CARDIO: denies chest pain, palpitations RESP: Shortness of breath with exertion : denies change in color of urine NEURO: weakness HEME: Denies any bruising MS: denies joint pain, joint swelling or back pain. DERM: denies rash or itching PSYCH: Denies history of anxiety or depression - Constitutional Vitals: Temp Pulse Resp BP Pulse Ox 97.5 F L 86 16 145/85 94 06/02/18 11:25 06/02/18 11:25 06/02/18 11:25 06/02/18 11:25 06/02/18 11:25 Exam: CONSTITUTIONAL:alert, no acute distress, answers yes or no questions. HEAD:normocephalic.EYES:no jaundice.NECK:no obvious swelling.HEART:regular rate and rhythm, no murmurs.LUNGS:bilateral fair air entry.ABDOMEN:non distended, soft, non tender, no masses palpable, no organomegaly.RECTAL EXAM:Deferred.EXTREMITIES:no clubbing, cyanosis or edema.SKIN:no stigmata of chronic liver disease.NEUROLOGIC:no obvious focal defect. Results - Labs CBC & Chem 7: 06/01/18 10:52 06/02/18 10:18 Labs: Last Result Calcium 8.5 mg/dL (8.6-10.3) L 06/02/18 10:18 Troponin I 0.07 ng/mL (< 0.04) H* 05/31/18 10:51 Triglycerides 118 mg/dL (< 150) 05/31/18 05:23 Entire Visit Hgb 11.3 g/dL (12.9-16.9) L 06/01/18 10:52 Hct 35.0 % (37.5-50.1) L 06/01/18 10:52 PT 14.2 Seconds (9.4-12.1) H 05/30/18 22:50 Total Bilirubin 0.8 mg/dL (0.3-1.0) 05/30/18 22:50 AST 36 Units/L (13-39) 05/30/18 22:50 ALT 24 Units/L (7-52) 05/30/18 22:50 - ABG ABG results: PT/INR, D-dimer PT 14.2 Seconds (9.4-12.1) H 05/30/18 22:50 - Impressions Impressions Videofluoroscopic Swallow 06/02/18 09:18 IMPRESSION: Swallowing mechanism grossly within normal limits. However, there is aspiration and penetration noted with the thin liquids. Please see separate speech pathology report for full discussion of findings and recommendations. D/ / Ugo Cook MD / Ugo Cook MD Interpreting Provider: Ugo Cook MD Consult Discharge Plan - Plan Referrals: NONE,PCP [Primary Care Provider] - <Argelia Tian - Last Filed: 06/02/18 17:11> Date of Encounter: 06/02/18 - Time Spent With Patient Total time spent is greater than 50% in coordination of care (as documented) at patient's floor/unit and/or counseling patient: GI History of Present Illness - Data of Consult Requesting Physician: Wilfrido Quintero MD - Consult Narrative History of present illness: Mr. Gilliland is a 73 year old male - Constitutional Vitals: Temp Pulse Resp BP Pulse Ox 97.5 F L 78 16 132/90 95 06/02/18 14:04 06/02/18 14:04 06/02/18 14:04 06/02/18 14:04 06/02/18 14:04 Results - Labs CBC & Chem 7: 06/01/18 10:52 06/02/18 10:18 Labs: Last Result Calcium 8.5 mg/dL (8.6-10.3) L 06/02/18 10:18 Troponin I 0.07 ng/mL (< 0.04) H* 05/31/18 10:51 Triglycerides 118 mg/dL (< 150) 05/31/18 05:23 Entire Visit Hgb 11.3 g/dL (12.9-16.9) L 06/01/18 10:52 Hct 35.0 % (37.5-50.1) L 06/01/18 10:52 PT 14.2 Seconds (9.4-12.1) H 05/30/18 22:50 Total Bilirubin 0.8 mg/dL (0.3-1.0) 05/30/18 22:50 AST 36 Units/L (13-39) 05/30/18 22:50 ALT 24 Units/L (7-52) 05/30/18 22:50 - ABG ABG results: PT/INR, D-dimer PT 14.2 Seconds (9.4-12.1) H 05/30/18 22:50 - Impressions Impressions Videofluoroscopic Swallow 06/02/18 09:18 IMPRESSION: Swallowing mechanism grossly within normal limits. However, there is aspiration and penetration noted with the thin liquids. Please see separate speech pathology report for full discussion of findings and recommendations. D/ / Ugo Cook MD / Uog Cook MD Interpreting Provider: Ugo Cook MD - Attending Attestation I have personally performed a face to face evaluation on this patient. I have reviewed and agree with the care plan. History and Exam by me shows: Patient seen. Patient with history of multiple strokes in the past with dementia and now with the difficulty swallowing admitted with aspiration pneumonia. Has been seen by speech therapy had a video fluoroscopy done. Examination alert awake but not fully oriented abdomen is soft. Assessment: Patient with dysphagia which is most probably oropharyngeal but rule out structural causes. ReC: EGD and if negative then we will recommend speech therapy for his oropharyngeal dysphagia and if the problem persists then may need a PEG tube placement for a few weeks
--- NOTE | 2018-06-02 13:37 | Anesthesia Evaluation PreOp ---
Date of Encounter: 06/02/18 Time of Encounter: 13:35 - Past History Planned Operation: EGD Cardiac History: [place], HTN, Arrhythmia (AFib), Other (PVD, Coronary Art. Aneurysm) Pulmonary History: COPD FISCAL SERVICES MANAGER History: CVA (x 9), Other (Cerebral aneurysm, dementia) Other Medical History: Denies Any Significant HX Anesthesia History: No Prior Anesthetic Complications, Past Anesthesia (GB, Cyst taken off of tailbone) Alcohol Use: none Drug use: none Medications and Allergies Albuterol Sulfate [Proair Hfa] 2 puff IH Q6H PRN 05/31/18 [History] Aspirin 325 mg PO DAILY 05/31/18 [History] Ergocalciferol (VITAMIN D2) [Vitamin D2] 2,000 unit PO DAILY 05/31/18 [History] Furosemide [Lasix] 20 mg PO DAILY 05/31/18 [History] Isosorbide MONOnitrate (24 HR) [Imdur] 30 mg PO DAILY 05/31/18 [History] Losartan/Hydrochlorothiazide [Losartan-Hctz 100-25 mg Tab] 1 tab PO DAILY 05/31/18 [History] Metoprolol [Lopressor] 50 mg PO BID 05/31/18 [History] Omeprazole [PriLOSEC] 40 mg PO DAILY 05/31/18 [History] Polyethylene Glycol 3350 [MiraLAX Powder Bulk 17.9 Oz] 1 scoop PO DAILY 05/31/18 [History] Simvastatin [Zocor] 40 mg PO HS 05/31/18 [History] clonazePAM [Klonopin] 0.5 mg PO DAILY PRN 05/31/18 [History] Allergy/AdvReac Type Severity Reaction Status Date / Time No Known Allergies Allergy Verified 05/30/18 22:19 - Meds/Allergy Pre-op Review Medications Reviewed: Yes Allergies Reviewed: Yes Beta Blockers on Current Med List: No If Beta Blockers taken, Date/Time (Last Dose taken): not on MAR Anesthesia Results - Labs 06/01/18 10:52 06/02/18 10:18 - Imaging EKG: image reviewed (AFib Rate 88) Anesthesia Exam Vital Signs/O2 Sat, Most Current Temp Pulse Resp BP Pulse Ox 97.5 F L 86 16 145/85 94 06/02/18 11:25 06/02/18 11:25 06/02/18 11:25 06/02/18 11:25 06/02/18 11:25 NPO (# of Hours): > 8 hrs Pain Scale: 0 Pain Scale Used: Numeric (1 - 10) - HEENT Pupil (Motor): Pupils equal, EOMI Mallampati: II Teeth: Missing Denture Type: Upper: Complete, Lower: Complete - FISCAL SERVICES MANAGER LOC: Confused, Disoriented FISCAL SERVICES MANAGER Motor: Normal RUE, Normal LUE, Normal RLE, Normal LLE, Normal Face FISCAL SERVICES MANAGER Sensory: Normal: RUE, LUE, RLE, LLE, Face - Cardiac Rhythm: Irregular Murmur: None JVD: No Carotid Bruit: No - Pulmonary Breath Sounds: bilateral Clear Respiratory Effort: Symmetrical Anesthesia Assess/Plan ASA Score: 4 Level of consciousness: Cooperative Anesthetic Plan: MAC Autologous Blood: Yes Monitoring Plan: Standard Monitors Recovery Plan: Other
[2018-06-02] MEDS ORDERED: Levalbuterol Neb 1.25 MG/3 ML IH PRN (13:59)
[2018-06-02] MEDS: 0.9 % Sodium Chloride 1,000 ML IVC SCH (14:06)
[2018-06-02] MEDS ORDERED: *HR* Propofol 200 MG/20 ML VIAL IVP ONE (14:24)
--- NOTE | 2018-06-02 14:40 | Electrocardiograph Report ---
[address] [address] Test Date: 2018-05-30 Pat Name: Calvin Gilliland Department: [id number] Room: 3A12 Gender: M Computer Consultant: : 1945 Requested By: Zeke Ruiz Order Number: [id number] Reading MD: Tosin Veloz Measurements Intervals [place] Rate: 189 P: [place]: QRS: -19 QRSD: 104 T: 99 QT: 253 QTc: 449 Interpretive Statements SVT Cannout rule out anteroseptal infarct, old Repolarization abnormality, prob rate related Electronically Signed On 06-02-2018 14:38:37 EST by Tosin Veloz
[2018-06-02] MEDS ORDERED: Tetracaine/Benzocaine/Butamben 1 SPRAY AEROSOL MM ONE (14:48)
--- NOTE | 2018-06-02 15:02 | Electrocardiograph Report ---
[address] [address] Test Date: 2018-06-02 Pat Name: Calvin Gilliland Department: 113 Room: 3A12 Gender: M Special Duty Nurse: : 1945 Requested By: Shiv Larios Order Number: [id number] Reading MD: Shiv Walsh Measurements Intervals [place] Rate: 88 P: [place]: 0 QRS: -33 QRSD: 126 T: 30 QT: 388 QTc: 434 Interpretive Statements ATRIAL FIBRILLATION MARKED LEFT AXIS DEVIATION MODERATE INTRAVENTRICULAR CONDUCTION DELAY Electronically Signed On 06-02-2018 15:01:43 EST by Shiv Walsh
[2018-06-03] MEDS: *HR* Heparin 5,000 UNIT/ML VIAL SQ SCH ×2 (04:48→18:18)
[2018-06-03 06:23] LABS: Basophils # 0.1 K/mcL (0.0-0.2); Basophils % 0.9 %; Eosinophils # 0.4 K/mcL (0.0-0.6); Eosinophils % 4.8 %; Hematocrit 34.3 % (37.5-50.1); Hemoglobin 11.4 g/dL (12.9-16.9); Immature Granulocytes % 8.4 % (0-4); Lymphocytes # 1.9 K/mcL (0.6-4.6); Lymphocytes % 22.1 %; Mean Corpuscular HGB Conc 33.2 g/dL (31.6-35.5); Mean Corpuscular Hemoglobin 28.9 pg (28.0-33.3); Mean Corpuscular Volume 86.8 fL (83.0-100.0); Mean Platelet Volume 10.7 fL (9.4-12.4); Monocytes # 0.7 K/mcL (0.0-1.3); Monocytes % 8.1 %; Neutrophils # 4.9 K/mcL (1.6-8.9); Platelet Count 438 K/mcL (140-400); Red Blood Count 3.95 M/mcL (4.19-5.50); Red Cell Distribution Width 14.2 % (11.5-14.5); Segmented Neutrophils % 55.7 %
[2018-06-03 06:46] LABS: BUN/Creatinine Ratio 16 (6-26); Blood Urea Nitrogen 14 mg/dL (8-23); Calcium 8.5 mg/dL (8.6-10.3); Carbon Dioxide 24 mEq/L (23-29); Chloride 108 mEq/L (98-107); Glucose 123 mg/dL (70-105); Osmolality,Calculated 284 (280-300); Phosphorous 2.7 mg/dL (2.7-4.5); Potassium 4.1 mEq/L (3.5-5.1); Sodium 136 mEq/L (136-145); eGFR For Non-African Americans > 60 (> 60)
[2018-06-03 06:51] LABS: Platelet Estimate Normal (Normal)
--- NOTE | 2018-06-03 08:11 | Discharge Summary ---
Orders not resulted at time of discharge: Pending orders 05/30/18 23:27 Culture,Blood [BC] Stat 05/30/18 23:30 Bedside Swallowing Evaluation [EVAL] Stat 05/31/18 02:19 Culture,Sputum with Gram Stain [RM] Routine 05/31/18 17:17 Bedside Swallowing Evaluation [EVAL] Routine 05/31/18 22:43 Culture,Urine [RM] Stat 06/02/18 14:37 Surgical Pathology [PTH] Routine 06/04/18 04:00 Basic Metabolic Panel AM 0400 CBC [Complete Blood Count] [HEME] AM 0400 Magnesium AM 0400 Phosphorous AM 0400 06/05/18 04:00 Basic Metabolic Panel AM 0400 CBC [Complete Blood Count] [HEME] AM 0400 Magnesium AM 0400 Phosphorous AM 0400 06/06/18 04:00 Basic Metabolic Panel AM 0400 CBC [Complete Blood Count] [HEME] AM 0400 Magnesium AM 0400 Phosphorous AM 0400 06/07/18 04:00 Basic Metabolic Panel AM 0400 CBC [Complete Blood Count] [HEME] AM 0400 Magnesium AM 0400 Phosphorous AM 0400 06/08/18 04:00 Basic Metabolic Panel AM 0400 CBC [Complete Blood Count] [HEME] AM 0400 Magnesium AM 0400 Phosphorous AM 0400 Date of Encounter: 06/03/18 Time of Encounter: 08:00 - Discharge Diagnosis (1) Sepsis Priority: Primary Status: Acute Assessment and Plan: 73 year old male with past medical history of CVA 9, atrial fibrillation, COPD, CAD with AL, hypertension, borderline diabetes, dementia who presented to the emergency department with his with complaint of difficulty swallowing. Makayla shepherd is notably not a good historian and most of history is obtained from his and chart review. states that she has noticed him being unable to swallow for the past 3 days. He does have residual deficits from his strokes including extremity weakness however she states that normally he has no issues eating or drinking. She has not noticed any coughing or gagging while eating. She states that when he puts food in his mouth, he will chew but is unable to initiate a swallow mechanism. She states that previously he has been able to eat and drink very well and usually has a very good appetite. He was assessed with afib with RVR and Sepsis likely 2/2 to UTI and aspiration pneumonia/ bacterial pneumonia on admission. He was started on a cardizem drip and zosyn. He improved clinically and WBC trended down. His complained of a new difficulty swallowing and a stroke workup was negative. He had a modified barium swallow done and noted tashia aspirating solids and his diet was changed to pureed. He was seen by GI and had an endoscopy done showing a normal esophagus. Etiology of dysphagia is possibly secondary to previous multiple CVAs. PEG tube recommended if he continues to aspirate. He was discharged in a stable condition. 35 minutes was spent discharging this patient Qualifiers: Sepsis type: sepsis due to unspecified organism Qualified Code(s): A41.9 - Sepsis, unspecified organism (2) Pneumonia Priority: Primary Status: Acute Qualifiers: Pneumonia type: aspiration pneumonia Laterality: right Qualified Code(s): J69.0 - Pneumonitis due to inhalation of food and vomit (3) Atrial fibrillation with rapid ventricular response Priority: Primary Status: Acute (4) Dysphagia Priority: Primary Status: Acute Qualifiers: Dysphagia type: oropharyngeal phase Qualified Code(s): R13.12 - Dysphagia, oropharyngeal phase (5) Hypokalemia Priority: Primary Status: Acute (6) DVT prophylaxis Priority: Primary Status: Acute Hospital course: Mr. Gilliland is a 73 year old male - Time Spent with Patient Total time spent providing and/or coordinating discharge services: - Discharge Medications Prescriptions: Amoxicillin/Clavulanate [Augmentin] 875 mg PO BIDWM #6 tablet Atorvastatin Calcium [Lipitor] 20 mg PO HS 30 Days #30 tablet Diltiazem CD (24hr) [Cardizem CD] 120 mg PO DAILY #60 cap.er.24h Home Medications: Albuterol Sulfate [Proair Hfa] 2 puff IH Q6H PRN 05/31/18 [History] Aspirin 325 mg PO DAILY 05/31/18 [History] Ergocalciferol (VITAMIN D2) [Vitamin D2] 2,000 unit PO DAILY 05/31/18 [History] Furosemide [Lasix] 20 mg PO DAILY 05/31/18 [History] Isosorbide MONOnitrate (24 HR) [Imdur] 30 mg PO DAILY 05/31/18 [History] Losartan/Hydrochlorothiazide [Losartan-Hctz 100-25 mg Tab] 1 tab PO DAILY [History] Omeprazole [PriLOSEC] 40 mg PO DAILY 05/31/18 [History] Polyethylene Glycol 3350 [MiraLAX Powder Bulk 17.9 Oz] 1 scoop PO DAILY 05/31/18 [History] clonazePAM [Klonopin] 0.5 mg PO DAILY PRN 05/31/18 [History] Amoxicillin/Clavulanate [Augmentin] 875 mg PO BIDWM #6 tablet 06/03/18 [Rx] Atorvastatin Calcium [Lipitor] 20 mg PO HS 30 Days #30 tablet 06/03/18 [Rx] Diltiazem CD (24hr) [Cardizem CD] 120 mg PO DAILY #60 cap.er.24h 06/03/18 [Rx] Allergies/Adverse Reactions: Allergy/AdvReac Type Severity Reaction Status Date / Time No Known Allergies Allergy Verified 05/30/18 22:19 Date of admission: 05/31/18 09:29 Primary care physician: PCP NONE Consults: 05/31/18 01:55 Consult to Speech Therapy [CONS] Routine Comment: Evaluate, develop and implement POC Reason for Consult: dysphagia Call Completed: No 05/31/18 03:43 Consult to Nutrition [CONS] Routine Comment: Consulting Provider: NUTRITION Reason for Dietary Consult: MST Score Consult to Pastoral Services [CONS] Routine Comment: Consult to Show Card Letterer [CONS] Routine Reason for SW Consult: expresses needs for cane/walker/ambulating device- at this time she takes his hands to guide him 05/31/18 11:40 Consult to Occupational Therapy [CONS] Routine Comment: Evaluate, develop and implement POC Reason for Consult: evaluate need for home health Does patient have active BEDREST order?: No Is patient medically & hemodynamically stable?: Yes Patient assessed for mobility or mobilized this visit?: Yes Consult to Physical Therapy [CONS] Routine Comment: Evaluate, develop and implement POC Reason for Consult: Evaluate need for home health Does patient have active BEDREST order?: No Is patient medically & hemodynamically stable?: Yes Patient assessed for mobility or mobilized this visit?: Yes 06/02/18 11:48 Consult to Gastroenterology [CONS] Routine Consulting Provider: Gastroenterology Radha Reason for Consult: new onset dysphagia, history of cvas Call Completed: No 06/02/18 12:21 dietary consult [Consult to Nutrition] [CONS] Routine Comment: Consulting Provider: NUTRITION Reason for Dietary Consult: Diet Education - Constitutional Vitals: Temp Pulse Resp BP Pulse Ox 97.4 F L 73 16 168/95 95 06/03/18 06:18 06/03/18 06:18 06/03/18 06:18 06/03/18 06:18 06/03/18 06:18 Exam: Gen.: Vitals noted. No acute distress. AAOx1, resting comfortably in bed. HEENT: PERRL/EOMI, oropharynx clear, Normocephalic, atraumatic, dry mucous membranes, tongue is orange in color Cardiac: Irregularly irregular, tachycardic, no murmur, +S1/S2, No BLE edema Pulmonary: Diffuse expiratory wheezes, crackles on right base. equal chest expansion, unlabored breathing Abdomen: soft, nontender, BS noted, no guarding, no palpable HSM Skin: warm and dry, no visible lesions. MSK: ROM unable to assess secondary to mental status. Patient unable to comprehend instructions., no joint swelling noted, gait no assessed while in bed. Non tender calf or clubbing Neuro: A&Ox1, unable to fully assess neurological exam is patient is unable to follow commands. He does try to stick out his tongue however tip of tongue does not protrude past mouth opening. Pupils equal and reactive to light. Psych: Appropriate mood and behavior, AOx1 - Patient Status Disposition: Home, Self-Care Condition: Good - Discharge Instructions Follow Up With: NONE,PCP [Primary Care Provider] -
--- NOTE | 2018-06-03 09:24 | Physician Discharge Referral ---
Home Health/Hosp Referral Info Transfer to: Home Health - Diagnosis (1) Sepsis Priority: Primary Status: Acute (2) Pneumonia Priority: Primary Status: Acute (3) Atrial fibrillation with rapid ventricular response Priority: Primary Status: Acute (4) Dysphagia Priority: Primary Status: Acute (5) Hypokalemia Priority: Primary Status: Acute (6) DVT prophylaxis Priority: Primary Status: Acute - Respiratory Orders Smoking Cessation: Smoking cessation has been advised. For more information, call the [place] Tobacco Quit Line at 0-268-UJIP-NOW. - Activity Activity Orders: Ambulate - Services Needed Following services are medically necessary services: Nursing, Home Health Aide, Physical Therapy - Transfer Medications Prescriptions: Amoxicillin/Clavulanate [Augmentin] 875 mg PO BIDWM #6 tablet Atorvastatin Calcium [Lipitor] 20 mg PO HS 30 Days #30 tablet Diltiazem CD (24hr) [Cardizem CD] 120 mg PO DAILY #60 cap.er.24h Home Medications: Albuterol Sulfate [Proair Hfa] 2 puff IH Q6H PRN 05/31/18 [History] Aspirin 325 mg PO DAILY 05/31/18 [History] Ergocalciferol (VITAMIN D2) [Vitamin D2] 2,000 unit PO DAILY 05/31/18 [History] Furosemide [Lasix] 20 mg PO DAILY 05/31/18 [History] Isosorbide MONOnitrate (24 HR) [Imdur] 30 mg PO DAILY 05/31/18 [History] Losartan/Hydrochlorothiazide [Losartan-Hctz 100-25 mg Tab] 1 tab PO DAILY 05/31/18 [History] Omeprazole [PriLOSEC] 40 mg PO DAILY 05/31/18 [History] Polyethylene Glycol 3350 [MiraLAX Powder Bulk 17.9 Oz] 1 scoop PO DAILY 05/31/18 [History] clonazePAM [Klonopin] 0.5 mg PO DAILY PRN 05/31/18 [History] Amoxicillin/Clavulanate [Augmentin] 875 mg PO BIDWM #6 tablet 06/03/18 [Rx] Atorvastatin Calcium [Lipitor] 20 mg PO HS 30 Days #30 tablet 06/03/18 [Rx] Diltiazem CD (24hr) [Cardizem CD] 120 mg PO DAILY #60 cap.er.24h 06/03/18 [Rx] Allergies/Adverse Reactions: Allergy/AdvReac Type Severity Reaction Status Date / Time No Known Allergies Allergy Verified 05/30/18 22:19 Certification: Further, I certify that my clinical findings support that this patient is homebound (i.e. absences from home require considerable and taxing effort and are for medical reasons or alevism services or infrequently or short duration when for other reasons) because: Homebound Reason: Patient requires assistance of a person or device to safely leave home Attestation: My signature below is to certify that this patient is under my care and that I, or nurse practitioner, or a physician's plastic surgery assistant working with me, has a [id number] encounter with this patient.
[2018-06-03] MEDS: Piperacillin/Tazobactam 3.375 GM in 0.9 % Sodium Chloride Mini Bag 100 ML IVPB SCH (10:44)
[2018-06-03] MEDS: Aspirin 325 MG TABLET PO SCH (10:48)
[2018-06-03] MEDS: Diltiazem CD (24hr) 120 MG CAPSULE PO SCH (10:48)
[2018-06-03] MEDS: 0.9 % Sodium Chloride 1,000 ML IVC SCH (13:35)
--- NOTE | 2018-06-03 14:24 | Physician Discharge Referral ---
- Diagnosis (1) Sepsis Priority: Primary Status: Acute (2) Pneumonia Priority: Primary Status: Acute (3) Atrial fibrillation with rapid ventricular response Priority: Primary Status: Acute (4) Dysphagia Priority: Primary Status: Acute (5) Hypokalemia Priority: Primary Status: Acute (6) DVT prophylaxis Priority: Primary Status: Acute - Transfer Medications Prescriptions: Amoxicillin/Clavulanate [Augmentin] 875 mg PO BIDWM #6 tablet Atorvastatin Calcium [Lipitor] 20 mg PO HS 30 Days #30 tablet Diltiazem CD (24hr) [Cardizem CD] 120 mg PO DAILY #60 cap.er.24h Home Medications: Albuterol Sulfate [Proair Hfa] 2 puff IH Q6H PRN 05/31/18 [History] Aspirin 325 mg PO DAILY 05/31/18 [History] Ergocalciferol (VITAMIN D2) [Vitamin D2] 2,000 unit PO DAILY 05/31/18 [History] Furosemide [Lasix] 20 mg PO DAILY 05/31/18 [History] Isosorbide MONOnitrate (24 HR) [Imdur] 30 mg PO DAILY 05/31/18 [History] Losartan/Hydrochlorothiazide [Losartan-Hctz 100-25 mg Tab] 1 tab PO DAILY 05/31/18 [History] Omeprazole [PriLOSEC] 40 mg PO DAILY 05/31/18 [History] Polyethylene Glycol 3350 [MiraLAX Powder Bulk 17.9 Oz] 1 scoop PO DAILY 05/31/18 [History] clonazePAM [Klonopin] 0.5 mg PO DAILY PRN 05/31/18 [History] Amoxicillin/Clavulanate [Augmentin] 875 mg PO BIDWM #6 tablet 06/03/18 [Rx] Atorvastatin Calcium [Lipitor] 20 mg PO HS 30 Days #30 tablet 06/03/18 [Rx] Diltiazem CD (24hr) [Cardizem CD] 120 mg PO DAILY #60 cap.er.24h 06/03/18 [Rx] Allergies/Adverse Reactions: Allergy/AdvReac Type Severity Reaction Status Date / Time No Known Allergies Allergy Verified 05/30/18 22:19 - Respiratory Orders Smoking Cessation: Smoking cessation has been advised. For more information, call the [employer] Tobacco Quit Line at 9-430-HBMQ-NOW. - Mobility Orders Ambulate - Diet Orders Cardiac CERTIFICATION: I certify that the transfer of the above named patient to an Extended Care Facility is necessary for the continuing treatment of the diagnosis listed. The above information is true and accurate reflection of patient's current condition. Confidential - Redisclosure prohibited without a patient's written consent.
[2018-06-04 05:42] LABS: Hematocrit 35.7 % (37.5-50.1); Hemoglobin 11.7 g/dL (12.9-16.9); Mean Corpuscular HGB Conc 32.8 g/dL (31.6-35.5); Mean Corpuscular Volume 88.4 fL (83.0-100.0); Mean Platelet Volume 10.6 fL (9.4-12.4); Platelet Count 507 K/mcL (140-400); Red Blood Count 4.04 M/mcL (4.19-5.50); Red Cell Distribution Width 14.4 % (11.5-14.5)
[2018-06-04 05:57] LABS: BUN/Creatinine Ratio 20 (6-26); Blood Urea Nitrogen 18 mg/dL (8-23); Calcium 8.7 mg/dL (8.6-10.3); Carbon Dioxide 22 mEq/L (23-29); Chloride 108 mEq/L (98-107); Glucose 113 mg/dL (70-105); Osmolality,Calculated 287 (280-300); Phosphorous 3.1 mg/dL (2.7-4.5); Potassium 4.2 mEq/L (3.5-5.1); Sodium 137 mEq/L (136-145); eGFR For Non-African Americans > 60 (> 60)
[2018-06-04 06:19] LABS: Basophils # 0.2 K/mcL (0.0-0.2); Eosinophils # 0.4 K/mcL (0.0-0.6); Monocytes # 0.4 K/mcL (0.0-1.3); Neutrophils # 5.9 K/mcL (1.6-8.9); Platelet Estimate Increased (Normal)
[2018-06-04] MEDS: *HR* Heparin 5,000 UNIT/ML VIAL SQ SCH (06:28)
[2018-06-04 07:04] VITALS: BP 158/87
[2018-06-04] MEDS: Diltiazem CD (24hr) 120 MG CAPSULE PO SCH (09:25)
[2018-06-04] MEDS: Aspirin 325 MG TABLET PO SCH (09:25)
--- NOTE | 2018-06-04 16:11 | Internal Med Progress Note ---
Hospitalist Progress Note - Encounter Date of Encounter: 06/04/18 Time of Encounter: 10:00 - Subjective Interval History: Patient seen and examined at bedside. No complaints. Plan for discharge to [facility] today. - Exam Vitals: Temp Pulse Resp BP Pulse Ox 97.9 F 66 15 158/87 100 06/04/18 07:00 06/04/18 07:00 06/04/18 07:00 06/04/18 07:00 06/04/18 07:00 Exam: Gen.: Alert and oriented 3, no acute distress Heart: Irregularly irregular, no murmurs, rubs, gallops - Assessment and Plan (1) Atrial fibrillation with rapid ventricular response Status: Resolved Assessment and Plan: Heart rate normal this time. Continue current medications. Patient was discharged yesterday however had been awaiting placement. Evaluated in stable at this time. We will be discharged today to [place] [facility]. Please refer to discharge summary from yesterday for complete information. (2) Sepsis Status: Resolved (3) Hypokalemia Status: Acute (4) Pneumonia Status: Acute (5) Dysphagia Status: Acute - Time Spent with Patient Total time spent is greater than 50% in coordination of care (as documented) at patient's floor/unit and/or counseling patient: Internal Medicine: Result - Labs CBC & Chem 7: 06/04/18 04:50 06/04/18 04:50 Labs: Short CBC 06/04/18 Range/Units 04:50 WBC 9.9 (4.3-11.1) K/mcL Hgb 11.7 L (12.9-16.9) g/dL Hct 35.7 L (37.5-50.1) % Plt Count 507 H (140-400) K/mcL Neutrophils # 5.9 (1.6-8.9) K/mcL BMP 06/04/18 04:50 Sodium 137 Potassium 4.2 Chloride 108 H Carbon Dioxide 22 L BUN 18 Creatinine 0.89 Glucose 113 H Calcium 8.7 - ABG Interpretation ABG results: PT/INR, D-dimer PT 14.2 Seconds (9.4-12.1) H 05/30/18 22:50 Consult Discharge Plan - Plan Referrals: NONE,PCP [Primary Care Provider] - Prescriptions: Amoxicillin/Clavulanate [Augmentin] 875 mg PO BIDWM #6 tablet Atorvastatin Calcium [Lipitor] 20 mg PO HS 30 Days #30 tablet clonazePAM [Klonopin] 0.5 mg PO DAILY PRN 5 Days #5 tablet PRN Reason: Anxiety Diltiazem CD (24hr) [Cardizem CD] 120 mg PO DAILY #60 cap.er.24h (2) Sepsis Qualifiers: Sepsis type: sepsis due to unspecified organism Qualified Code(s): A41.9 - Sepsis, unspecified organism (4) Pneumonia Qualifiers: Pneumonia type: aspiration pneumonia Laterality: right Qualified Code(s): J69.0 - Pneumonitis due to inhalation of food and vomit (5) Dysphagia Qualifiers: Dysphagia type: oropharyngeal phase Qualified Code(s): R13.12 - Dysphagia, oropharyngeal phase
== END 2018-06-04 14:34 | DRG 720 ==
LOC: 2SOUTHHOLD 22:13 → EMEROOARM 22:13 → 2SOUTHHOLD 05-31 03:58 → SUATTDRO 05-31 09:29 → 3ANU 05-31 18:31
PROVIDERS: ADMIT Internal Medicine; ATTEND Internal Medicine
PROC: ENDOEBX (2018-06-02 14:00)